=== PATIENT | female | born 1930 | race Caucasian/White ===

== ENCOUNTER 2019-04-17 20:35 | Emergency (ER) | payer MEDICARE, OTHER ==
[~2019-04-17] VITALS: Ht 162.6 cm; Wt 71.7 kg
[~2019-04-17 20:35] MED LIST: ACET120S PR; ASPI81EC PO; HYDACE5 PO; LEVSOD75 PO; MAGCIT300 PO; OMEP10ER; PRED20 PO; RABE20 PO; TRIHYD5075 PO
== END 2019-04-17 23:25 | disposition home or self-care (01) ==
LOC: ER 20:35
DX: S09.90XA Unspecified injury of head, initial encounter (principal); W01.198A Fall on same level from slipping, tripping and stumbling with subsequent striking against other object, initial encounter; Z88.0 Allergy status to penicillin; Z88.5 Allergy status to narcotic agent; Z88.8 Allergy status to other drugs, medicaments and biological substances; Z79.899 Other long term (current) drug therapy; Z79.82 Long term (current) use of aspirin; E03.9 Hypothyroidism, unspecified; K21.9 Gastro-esophageal reflux disease without esophagitis; I10 Essential (primary) hypertension
CPT/HCPCS: 70450; 72125; 99283-25; A9270